=== PATIENT | male | born 1965 ===

== ENCOUNTER 2024-03-14 04:31 | Day surgery (SDC) | payer BC ==
[2024-03-11 15:44] VITALS: BMI 27.4
[2024-03-14] MEDS ORDERED: MIDAZOLAM HCL 2 MG/2 ML SINGLE DOSE VIAL ONE (14:57)
[2024-03-14] MEDS ORDERED: ONDANSETRON 4 MG/2 ML VIAL ONE (14:57)
[2024-03-14 17:07] VITALS: BP 150/86; PULSE 56; RESP 17; TEMP 97.8
== END 2024-03-14 17:00 | disposition home or self-care (01) ==
LOC: JASU-SURG 04:31
PROVIDERS: ATTEND Urology
PROC: 0TF3XZZ Fragmentation in Right Kidney Pelvis, External Approach (ICD-10-PCS; principal; 2024-03-14 15:16)
DX: N20.0 Calculus of kidney (principal)